=== PATIENT | male | born 1980 | race Caucasian/White ===

== ENCOUNTER → 2018-03-08 08:15 | Day surgery (SDC) | payer OTHER ==
--- NOTE | 2018-02-24 15:13 | HP ---
PREOPERATIVE HISTORY AND PHYSICAL: DATE OF ADMISSION/SURGERY: 03/08/18 DATE OF OFFICE VISIT: 02/24/18 ATTENDING SURGEON: Dr. Pipe Montiel.* (DICTATED BY GIANNI ESTRADA) PROCEDURE: Left shoulder arthroscopic labral repair, subpectoral biceps tenodesis. CHIEF COMPLAINT: Left shoulder pain. HISTORY OF PRESENT ILLNESS: Luis Armando is a 37-year-old male who presents to the clinic for followup of his left shoulder due to instability and biceps tendinitis. He had a previous labral repair in [address] Dunn in [place]. He continued to sublux and failed conservative measures; therefore , he has agreed to undergo left shoulder arthroscopic labral repair and subpectoral biceps tenodesis by Dr. Montiel seen on 03/08/18. PAST MEDICAL HISTORY: Lymphoma and anxiety. PAST SURGICAL HISTORY: Left shoulder surgery in 2015, testicular removal for hernia in 2011 and hydrocele in 1997. The patient denies prior complications with anesthesia. MEDICATIONS: Doxycycline 100 mg 1 by mouth twice a day. ALLERGIES: SULFA ANTIBIOTICS and PENICILLIN. FAMILY HISTORY: Positive for heart disease in his father and cancer on his maternal and paternal sides. SOCIAL HISTORY: He lives alone. 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 He denies tobacco use. He reports occasional alcohol consumption. He denies illegal drug use. He is right-hand dominant. REVIEW OF SYSTEMS: A 14-point review of systems was reviewed with the patient, positive for current complaint, otherwise negative. Denies fevers, chills, chest pain, shortness of breath, history of bleeding disorder, history of DVT or PE, history of MRSA. PHYSICAL EXAMINATION GENERAL: A 37-year-old well-developed, well-nourished male, in no acute distress. Alert and oriented x3. Appropriate mood and affect. Appropriate balance and coordination of the upper extremities. VITAL SIGNS: Height 67, weight 165, blood pressure 103/62, respiratory rate 18 , BMI 25.8. HEENT: Normocephalic, atraumatic. PERRLA. Throat clear. NECK: Supple. PULMONARY: Lungs clear to auscultation bilaterally. No wheezing, rhonchi, or rales. CARDIO: Regular rate and rhythm. S1, S2. No murmurs, gallops, or rubs. No edema. ABDOMEN: Positive bowel sounds, soft, and nontender. NEURO: Alert and oriented x3. Cranial nerves grossly intact. Sensation intact to light touch. MUSCULOSKELETAL: Left upper extremity: Skin is intact. No warmth or erythema. Tenderness over the bicipital groove. Forward flexion and abduction to 175, external rotation to 80, internal rotation to T6. +5/5 strength to rotator cuff testing. Positive apprehension relocation test. 1 to 2+ anterior glide with pain. Positive Speed's and Point Arena's. +2 radial pulses. Sensation intact to light touch distally. DIAGNOSTIC STUDIES: MR arthrogram revealed superior labral degeneration. No full- thickness tears of the rotator cuff, anterior labrum is diminutive, and the glenohumeral ligament looked stretched, large Hill-Sachs lesion. IMPRESSION: Left shoulder instability and biceps tendinitis. PLAN: The patient is scheduled to undergo a left shoulder arthroscopic labral repair and subpectoral biceps tenodesis by Dr. Montiel on 03/08/18. He will follow up 10 to 14 days postop for followup and suture removal. Percocet will be used for postop pain management and Keflex for antibiotic prophylaxis. GIANNI ESTRADA [id number]/[facility] #: [id number] MTDOksana
[~2018-03-08 08:15] MED LIST: Atracurium* 10 MG/ML 10 ML VIAL ONE; Buffered Lidocaine 0.9% SYRIN* 5 ML/SYR SYRINGE INTRADERM ONE; Buffered Lidocaine 0.9% SYRIN* 5 ML/SYR SYRINGE ONE; Bupivacaine 0.5% PF 10 ML VIAL INJ ONE; Clindamycin 900 MG IVPREMIX(* 900 MG/50 ML SDV IV ONE; Dexamethasone IV* 4 MG/ML 1 ML (4 MG) IV SLOW PU ONE; Dexamethasone IV* 4 MG/ML 1 ML (4 MG) ONE; DiMENhydriNATE IV* 50 MG/ML VIAL IV PUSH PRN; Famotidine IV* 10 MG/ML 2 ML (20 mg) IV ONE; Famotidine IV* 10 MG/ML 2 ML (20 mg) ONE; Midazolam* 1 MG/ML 5 ML VIAL (5 MG) ONE; Naloxone* 0.4 MG/ML 1 ML VIAL IV PRN; Ondansetron INJ* 2 MG/ML VIAL IV PRN; Ondansetron INJ* 2 MG/ML VIAL ONE; Propofol* 10 MG/ML 20 ML BTL IV PUSH ONE; ROPIVACAINE 5 MG/ML 30 ML BTL (0.5%) ONE; fentaNYL* 50 MCG/ML 2 ML VIAL (100 MCG VIAL) IV PRN; fentaNYL* 50 MCG/ML 2 ML VIAL (100 MCG VIAL) ONE; oxyCODONE/Acetamin 5/325 MG* TAB PO PRN
[2018-03-08 13:17] VITALS: BP 133/82
--- NOTE | 2018-03-09 11:06 | OP ---
DATE OF OPERATION: 03/08/18 [facility] DATE OF : 80 SURGEON: Pipe Montiel MD WILL CALL CLERK: GIANNI Roman. An costumer assistant was needed for the entirety of the case to help with positioning, retraction, and was utilized throughout all portions of the case. ANESTHESIOLOGIST: Dr. Angelo. ANESTHESIA: General interscalene block. PRE-OP DIAGNOSIS: Left shoulder recurrent dislocation and bicipital tendinitis. POST-OP DIAGNOSIS: Left shoulder recurrent dislocation and bicipital tendinitis. OPERATIVE PROCEDURE: 1. Left shoulder arthroscopy with revision anterior labral repair. 2. Chondroplasty of the glenohumeral joint. 3. Subpectoral biceps tenodesis. COMPLICATIONS: None. ESTIMATED BLOOD LOSS: Minimal. IMPLANTS: Three 2.9 bioraptors and one Q-Fix 2.8 mm. COMPLICATIONS: None. ESTIMATED BLOOD LOSS: Minimal. INDICATIONS: Luis Armando is a 37-year-old male who had a previous labral repair for multiple dislocations in [address] Dunn in [place]. He continued to sublux and he had failed conservative measures and has elected to proceed with revision surgery. Risks and benefits were discussed in length and included but not limited to bleeding; infection; damage to nerves, vessels, surrounding structures; wound nonhealing; persistent pain; need for surgery; scaring; stiffness; incomplete release of symptoms; risk of anesthesia; arthritis; need for further surgery; failure of repair. He has elected to proceed. DESCRIPTION OF PROCEDURE: The patient was greeted in the preoperative area by the attending surgeon. Correct extremity was marked, consent was confirmed. The patient then underwent interscalene nerve block by the anesthesiologist after which he was brought back to the operating suite. He was placed in a supine position on the operating room table. He then underwent general anesthesia with endotracheal intubation after which he was placed in the right lateral decubitus position. All bony prominences were padded. He was secured with a peg board, an axillary roll was placed. Left shoulder was draped unsterile with 10 pounds of traction. There was a 1 to 2+ anterior glide. The left shoulder was then prepped and draped in the usual sterile fashion beginning with chlorhexidine, soap, scrub, and alcohol wipe, and a final prep with ChloraPrep. After appropriate surgical pause indicating site, side, procedure, and administration of antibiotics the posterolateral portal was made sharply with an 11 blade. Scope was introduced into the joint. Joint was examined and there were grade 2 changes in the glenohumeral joint. There was a moderate sized Hill-Sachs lesion that appeared to be engaging the glenoid. The head was subluxed anteriorly. There was evidence of superior labral tearing as well as damage to the jaky and bicipital tendonitis. The undersurface of the supraspinatus was intact. Subscap was intact. There was evidence of absence of the anterior labrum and would stretch neither at the capsule or tearing through the sutures. At this point, the lower anterior portal was made just above the subscap. The 8-mm cannula was then placed. This was the working portal. Shaver was used to debride back the chondral surfaces and to try to help remove the previously placed sutures. The shaver was used to debride back the superior labrum and the biceps was then tenotomized. A second portal was placed in the superior aspect of the interval. A 5mm portal was placed which was the suture passing portal. At this point, the lateral florentino was used to help to distract the shoulder which showed a large drive-through sign. The labrum was repaired in the usual fashion. First the sutures previously placed had to be dug out and then removed. They were removed in their entirety x3. The elevator was then used to try to reapproximate and remove the eschar capsule to the medial aspect of the glenoid. This helped to loosen up the tissues. The capsule was then rasped with a double-ended rasp. The bony edge of the glenoid was then also rasped with a red ball rasp as well as a double- ended rasp. There was a small amount of bleeding that occurred with this which is a good sign. After this was done, the first tourniquet was placed at the 5: 30 position with excellent purchase. Sutures were impacted in a horizontal mattress configuration, but somewhat challenging due to the quality of the capsule, but a horizontal mattress was then placed and tied down using arthroscopic knot tying. This helped to restore the inferior superior shift as well as the labrum anteroinferiorly. The second anchor was placed at the 4:30 position and also passed in a horizontal mattress configuration. This was then tied down using arthroscopic knot tying. This helped to eliminate the drive- through sign. A third anchor was placed at around the 3:30 position and passed in a simple fashion. The lateral florentino was removed. The drive- through sign was limited and the shoulder was sitting more appropriately. There was no evidence of engagement of the Hill-Sachs lesion at this point. Final images were obtained. The wounds were copiously irrigated with sterile saline. Attention was directed to the biceps. The bed was air planed to the right side. The anterior aspect was prepped again using ChloraPrep. A 15-blade was used to make incision along the biceps and the soft tissues were carefully dissected to expose the pec tendon. The remainder of the dissection was done bluntly and the pec was elevated to expose the biceps tendon which was brought through the wound. This had abundant synovitis and erythema. The red ball rasp was then used to prepare the bicipital groove along with electrocautery device as well as the osteotome. At this point, the Q-Fix guide was then used to drill unicortically. The suture anchor was then deployed with excellent purchase. The sutures were then passed through the tendon approximately 1 cm proximal to the musculotendinous junction. The excess stump was excised, the sutures shelved back into the wound and tied down. The wounds were copiously irrigated with sterile saline. The anterior wound was closed in layers of 2-0 Vicryl and 2-0 Monocryl. Portals were closed with 3-0 nylon in uninterrupted fashion. Sterile dressings were applied. The anterior wound was injected with 20 cc of 0.25% Marcaine. Cryo/Cuff and UltraSling were applied. He was awoken from anesthesia and transferred to PACU in stable condition. POSTOPERATIVE PLAN: He will be discharged on pain medications and antibiotics. He will start physical therapy in approximately 10 days. DVT prophylaxis was considered but deferred due to no previous personal or family history. I will see the patient back in 10 to 14 days. [id number]/[facility] #: [id number] [facility]ITAL[facility]ksana
== END | disposition home or self-care (01) ==
LOC: OR 08:15
PROVIDERS: ATTEND Orthopaedic Surgery
DX: M25.312 Other instability, left shoulder (principal); M75.22 Bicipital tendinitis, left shoulder; F41.9 Anxiety disorder, unspecified; Z85.72 Personal history of non-Hodgkin lymphomas; G89.18 Other acute postprocedural pain
CPT/HCPCS: C1776; J1100; J2250; J2405; J2704; J2795; J3010

== ENCOUNTER 2018-03-30 13:51 | Emergency (ER) | payer OTHER ==
--- OUTSIDE RECORDS SUMMARY | 2018-03-30 13:57 | XMS REPORT ---
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., FACP Active large cell (clinical) Note: 2011 Onset: 02/16/2017 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.,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 Onset: 12/15/2017 Injury of shoulder region Pipe Montiel MD Active Onset: 12/15/2017 Recurrent dislocation of shoulder region Pipe Montiel MD Active Family History Date Family Member(s) Problem(s) Comments General Heart Disease General Cancer Father Skin Cancer Father 69 Mother Hypoglycemic, Joint Problems Mother 62 Siblings 1 First Sister No Current Problems Paternal Grandmother Skin Cancer Maternal Grandfather Lung Cancer Maternal Grandmother Alzheimer's Disease Social History Type Date Description Comments Marital Status Single Lives With Alone 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, Researcher ETOH Use 11/29/2017 Current Beer/Liquor Smoking Patient has never smoked Daily Caffeine Consumes on average 1 cup of hot tea per day Exercise Type/Frequency Exercises regularly Currently Active Patient is currently sexually active Allergies, Adverse Reactions, Alerts Date Description Reaction Status Severity Comments 02/16/2017 Sulfa Antibiotics Urticaria active Mild 02/16/2017 Penicillin active Mild to Moderate fever Medications Medication Date Status Form Strength Qnty SIG Indications Ordering Provider Percocet Active Tablets 5-325mg 25tabs 1 tabs by Pipe Cole mouth MD Dinesh every 4-6 hours as needed pain Keflex Active Capsules 500mg 12caps take 1 tab Pipe 018 by mouth MD Dinesh four times a day x 3 days. Do Not take before surgery Doxycycline Active Capsules 100mg 1 by mouth Unknown Monohydrate 000 twice a day No Active Hx Unknown Medications 018 - 018 Glucosamine Hx Capsules 500mg 2 caps by Unknown 000 - mouth three 018 times a day Multi Complete Hx Capsules daily Unknown 000 - 018 Vital Signs Date Vital Result Comment 03/30/2018 Height 67 inches 5'7" Weight 165.00 lb BP Systolic 122 mmHg BP Diastolic 72 mmHg Respiratory Rate 16 /min Body Temperature 96.9 F Pain Level 0 BMI (Body Mass Index) 25.8 kg/m2 03/17/2018 Height 67 inches 5'7" Weight 165.00 lb BP Systolic 130 mmHg BP Diastolic 78 mmHg Respiratory Rate 18 /min Body Temperature 97.0 F Pain Level 2 BMI (Body Mass Index) 25.8 kg/m2 02/24/2018 Height 67 inches 5'7" Weight 165.00 lb BP Systolic 103 mmHg BP Diastolic 62 mmHg Respiratory Rate 18 /min Pain Level 1 BMI (Body Mass Index) 25.8 kg/m2 01/10/2018 Height 67 inches 5'7" Weight 173.00 lb Heart Rate 68 /min BP Systolic 122 mmHg BP Diastolic 75 mmHg Body Temperature 97.9 F Pain Level 1 BMI (Body Mass Index) 27.1 kg/m2 12/15/2017 Height 67 inches 5'7" Weight 173.00 lb BP Systolic 124 mmHg BP Diastolic 70 mmHg Respiratory Rate 18 /min Body Temperature 97.9 F Pain Level 2 BMI (Body Mass Index) 27.1 kg/m2 11/29/2017 Weight 173.00 lb Heart Rate 72 /min BP Systolic 122 mmHg BP Diastolic 68 mmHg Body Temperature 97.2 F O2 % BldC Oximetry 97 % 02/16/2017 Height 67 inches 5'7" Weight 164.25 lb Heart Rate 66 /min BP Systolic Sitting 126 mmHg BP Diastolic Sitting 64 mmHg Body Temperature 97.7 F O2 % BldC Oximetry 98 % BMI (Body Mass Index) 25.7 kg/m2 Results Test Date Test Result H/L Range Note CBC Auto Diff 03/02/2017 White Blood Count 6.4 10^3/uL 3.5-10.8 Red Blood Count 5.03 10^6/uL 4.0-5.4 Hemoglobin 15.3 g/dL 14.0-18.0 Hematocrit 46 % 42-52 Mean Corpuscular Volume 92 fL 80-94 Mean Corpuscular Hemoglobin 30 pg 27-31 Mean Corpuscular HGB Conc 33 g/dL 31-36 Red Cell Distribution Width 13 % 10.5-15 Platelet Count 195 10^3/uL 150-450 Mean Platelet Volume 8 um3 7.4-10.4 Abs Neutrophils 4.0 10^3/uL 1.5-7.7 Abs Lymphocytes 1.8 10^3/uL 1.0-4.8 Abs Monocytes 0.6 10^3/uL 0-0.8 Abs Eosinophils 0 10^3/uL 0-0.6 Abs Basophils 0 10^3/uL 0-0.2 Abs Nucleated RBC 0.01 10^3/uL Granulocyte % 62.9 % 38-83 Lymphocyte % 27.7 % 25-47 Monocyte % 8.7 % 1-9 Eosinophil % 0.3 % 0-6 Basophil % 0.4 % 0-2 Nucleated Red Blood Cells % 0.2 Lipid Profile (Trig/Chol/HDL) 03/02/2017 Triglycerides 97 mg/dL 1 Cholesterol 219 mg/dL 2 HDL Cholesterol 47.2 mg/dL 3 LDL Cholesterol 152 mg/dL 4 Comp Metabolic Panel 03/02/2017 Sodium 136 mmol/L 133-145 Potassium 4.0 mmol/L 3.5-5.0 Chloride 103 mmol/L 101-111 Co2 Carbon Dioxide 27 mmol/L 22-32 Anion Gap 6 mmol/L 2-11 Glucose 90 mg/dL 70-100 Blood Urea Nitrogen 15 mg/dL 6-24 Creatinine 0.95 mg/dL 0.67-1.17 BUN/Creatinine Ratio 15.8 8-20 Calcium 9.3 mg/dL 8.6-10.3 Total Protein 7.2 g/dL 6.4-8.9 Albumin 4.3 g/dL 3.2-5.2 Globulin 2.9 g/dL 2-4 Albumin/Globulin Ratio 1.5 1-3 Total Bilirubin 0.90 mg/dL 0.2-1.0 Alkaline Phosphatase 43 U/L 34-104 Alt 27 U/L 7-52 Ast 21 U/L 13-39 Egfr Non- 89.7 >60 Egfr 115.4 >60 5 HIV 1/2 AB Evaluation 03/02/2017 HIV 1 2 Antibody Nonreactive Nonreactive 6 Laboratory test 03/02/2017 Hepatitis C Antibody Nonreactive Nonreactive 7 finding GC/Chlamydia Amplified 03/02/2017 Chlamydia trachomatis Negative Negative Rna Rna Neisseria gonorrhoeae (GC) Rna Negative Negative 1 Desirable <150 Borderline high 150-199 High 200-499 Very High >500 2 Desirable <200 Borderline high 200-239 High >239 3 Low <40 Desirable: 40-60 High: >60 4 Desirable: <100 mg/dL Near Optimal: 100-129 mg/dL Borderline High: 130-159 mg/dL High: 160-189 mg/dL Very High: >189 mg/dL 5 Because ethnic data is not always readily available, this report includes an eGFR for both -Americans and non- Americans. The National Kidney Disease Education Program (NKDEP) does not endorse the use of the MDRD equation for patients that are not between the ages of 18 and 70, are , have extremes of body size, muscle mass, or nutritional status, or are non- or non-. According to the National Kidney Foundation, irrespective of diagnosis, the stage of the disease is based on the level of kidney function: Stage Description GFR(mL/min/1.73 m(2)) 1 Kidney damage with normal or decreased GFR 90 2 Kidney damage with mild decrease in GFR 60-89 3 Moderate decrease in GFR 30-59 4 Severe decrease in GFR 15-29 5 Kidney failure <15 (or dialysis) 6 It is recognized that currently available assays for the detection of antibodies to HIV-1 and/or HIV-2 may not detect all infected individuals. HIV antibodies may be undetectable in some stages of the infection and in some clinical conditions. The performance of this assay has not been established for populations of infants or children. Assayed by Chemiluminescence Microparticle Immunoassay on the [employer] Advia Centaur CP. Values obtained with different methods or kits cannot be used interchangeably.The diagnostic specificity of the ADVIA Centaur 1/O/2 Enhanced assay in the low risk population was 99.90% (6052/6058) with a 95% confidence interval of 99.78 to 99.96%. 7 FASTING 10 HOUR Procedures Date CPT Code Description Status 03/08/2018 53273 Arthroscopy Shoulder Debridement Extensive Completed 03/08/2018 11270 Arthroscopy Shoulder Debridement Extensive Completed 03/08/2018 90737 Arthroscopy Shoulder Debridement Extensive Completed 03/08/2018 87152 Arthroscopy,Shoulder,Surg,Capsulorrhaphy Completed 03/08/2018 73208 Arthroscopy,Shoulder,Surg,Capsulorrhaphy Completed 03/08/2018 12023 Tenodesis Biceps Long Tendon Completed 03/08/2018 98055 Tenodesis Biceps Long Tendon Completed 12/05/2017 33341 Biopsy Skin Lesion Single Completed Encounters Type Date Location Provider CPT E/M Dx Office Visit 01/10/2018 1:45p [facility] [place] [address] M24.412 C.[facility]A. S46.102A Office Visit 12/15/2017 1:30p [facility] [place] [address] M24.412 C.M.A. S46.102A Office Visit 12/05/2017 3:20p [facility] [place] [address] H00.019 D22.9 L98.9 Office Visit 11/29/2017 4:00p [facility] [place], [address] M24.412 Kevyn Aquino M.D.,FACP D48.5 H00.015 Office Visit 02/16/2017 1:00p [facility] [place] [place], [address] Z00.01 Medicine - Tbyumiko Noel M.D.,FACP C83.35 S86.102D Plan of Care Future Appointment(s):04/18/2018 1:15 pm - Pipe Montiel MD at [facility]03/30/2018 - Pipe Montiel, MDM24.412 Recurrent dislocation, left shoulderFollow up:Follow up: 3 nychgT33.102D Unsp injury of musc/fasc/ tend long hd bicep, left arm, subs
--- OUTSIDE RECORDS SUMMARY | 2018-03-30 13:57 | XMS REPORT ---
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 Values obtained with different methods or kits cannot be used interchangeably.The diagnostic specificity of the ADVIA Centaur 1/O/2 Enhanced assay in the low risk population was 99.90% (6052/6058) with a 95% confidence interval of 99.78 to 99.96%. 7 FASTING 10 HOUR Procedures Date CPT Code Description Status 03/08/2018 04172 Arthroscopy Shoulder Debridement Extensive Completed 03/08/2018 44668 Arthroscopy Shoulder Debridement Extensive Completed 03/08/2018 20102 Arthroscopy,Shoulder,Surg,Capsulorrhaphy Completed 03/08/2018 19501 Arthroscopy,Shoulder,Surg,Capsulorrhaphy Completed 03/08/2018 60034 Tenodesis Biceps Long Tendon Completed 12/05/2017 98670 Biopsy Skin Lesion Single Completed Encounters Type Date Location Provider CPT E/M Dx Office Visit 01/10/2018 1:45p [facility] [place] [address] M24.412 C.M.A. S46.102A Office Visit 12/15/2017 1:30p [facility] [place] [address] M24.412 C.M.A. S46.102A Office Visit 12/05/2017 3:20p [facility] [place] [address] H00.019 D22.9 L98.9 Office Visit 11/29/2017 4:00p [facility] [place], [address] M24.412 Medicine - Kenia Yanez,FACP D48.5 H00.015 Office Visit 02/16/2017 1:00p [facility] [place], [address] Z00.01 Medicine - Jaydon Noel M.D.,FACP C83.35 S86.102D Plan of Care Future Appointment(s):04/18/2018 1:15 pm - Pipe Montiel MD at [facility]03/17/2018 - GIANNI Roman-CM24.412 Recurrent dislocation, left shoulderFollow up:Follow up: 4 geitiI50.102D Unsp injury of musc/fasc/tend long hd bicep, left arm, subs
[2018-03-30 14:29] VITALS: BP 124/82
--- NOTE | 2018-03-30 14:49 | UC ---
Eye Complaint HPI - HPI Summary HPI Summary: This is [facility] documenting for presenting MD Amy. Pt is a 37 y/o M p/w possible L eye infection onset this AM. Assoc. Sx: itchy eye, red eye, drainage, crust. Denies: Change in vision, use of glasses. Patient notes that he woke this AM with Sx. Allergies: Penicillin. FHx: CAD. He denies use of contact lenses. He states his right eye is starting to get irritated as well now. - History of Current Complaint Chief Complaint: UCEye Stated Complaint: EYE ISSUE Time Seen by Provider: 03/30/18 14:42 Hx Obtained From: Patient Onset/Duration: Sudden Onset Timing: Constant Severity Currently: Mild Pain Intensity: 1 Pain Scale Used: 0-10 Numeric Location of Injury: Other - Diffuse eye Aggravating Factor(s): Nothing Alleviating Factor(s): Nothing Associated Signs And Symptoms: Positive: Drainage (Clear). Negative: Vision Impairment Bilateral, Vision Impairment Right, Vision Impairment Left - Allergies/Home Medications Allergies/Adverse Reactions: Allergies Allergy/AdvReac Type Severity Reaction Status Date / Time Penicillins Allergy Fever Verified 03/30/18 14:21 Sulfa (Sulfonamide Allergy Hives Verified 03/30/18 14:21 Antibiotics) BEE STINGS Allergy SWELLING, Uncoded 03/30/18 14:21 HIVES Home Medications: Home Medications Ibuprofen TAB* [Motrin TAB* 600 MG] 600 mg PO ONCE 03/30/18 [History Confirmed 03/30/18] PMH/Surg Hx/FS Hx/Imm Hx - Surgical History Surgical History: Yes Surgery Procedure, Year, and Place: 2014 LT SHOULDER - REPAIR - SUPRASPANATUS REPAIR, [place]. 2011 REMOVAL RIGHT TESTICLE, [place]. 1996 HYDROCELE - REMOVED, [place]. 2017 L shoulder repair - Family History Known Family History: Positive: Cardiac Disease Negative: Hypertension, Diabetes - Social History Alcohol Use: Occasionally Substance Use Type: None Smoking Status (MU): Never Smoked Tobacco Review of Systems Eyes: Drainage - clear, Eye Redness, Other - NEG: change in vision POS: watering, crust. All Other Systems Reviewed And Are Negative: Yes Physical Exam Triage Information Reviewed: Yes Appearance: Well-Appearing, No Pain Distress Vital Signs: Initial Vital Signs Temp 98.5 F 08/02/18 14:22 Pulse 59 03/30/18 14:22 Resp 16 03/30/18 14:22 BP 124/82 03/30/18 14:22 Pulse Ox 99 03/30/18 14:22 Eyes: Positive: Conjunctiva Inflamed - bilateral left greater than right ENT: Positive: Normal ENT inspection Neck: Positive: Supple Respiratory: Positive: Chest non-tender Cardiovascular: Positive: RRR, No Murmur Abdomen Description: Negative: Distended Musculoskeletal: Positive: ROM Intact Neurological: Positive: Muscle Tone Normal Psychological: Positive: Normal Response To Family Skin Exam: Normal Eye Complaint Course/Dx - Course Course Of Treatment: Provider met with patient and decided a Dx of bilateral conjunctivitis. He is going to prescribe drops for pt. He will be discharged. - Differential Dx/Diagnosis Provider Diagnoses: Conjunctivitis bilateral Discharge - Sign-Out/Discharge Documenting (check all that apply): Patient Departure - Discharge Plan Condition: Good Disposition: HOME Prescriptions: Ofloxacin 0.3%(Ophth)(Nf) [Ocuflox OPTH 0.3%(NF)] 1 drop BOTH EYES QID #1 btl Patient Education Materials: Conjunctivitis (ED) Referrals: You La MD [Primary Care Provider] - - Billing Disposition and Condition Condition: GOOD Disposition: Home
== END 2018-03-30 14:55 | disposition home or self-care (01) ==
LOC: UCEAST 13:51
DX: H10.33 Unspecified acute conjunctivitis, bilateral (principal); Z88.0 Allergy status to penicillin; Z88.2 Allergy status to sulfonamides; Z91.030 Bee allergy status
CPT/HCPCS: 99212; G0463

== ENCOUNTER 2019-09-29 12:44 | Emergency (ER) | payer OTHER ==
[2019-09-29 13:08] VITALS: BP 125/74
--- NOTE | 2019-09-29 13:46 | UC ---
Throat Pain/Nasal Thomas HPI - HPI Summary HPI Summary: 38yo male presenting with nasal congestion and sinus tenderness x3 weeks that has worsened over the past 3 days. Patient states he had a cold or the flu 3 weeks ago and all symptoms resolved except congestion and persistent productive cough. Denies shortness breath and wheezing. Does note it is more difficult to sleep at night due to cough. Notes postnasal drip. Denies sore throat. Denies ear pain. Denies fever or chills. Taking [id number] cough and cold medication without relief. - History of Current Complaint Chief Complaint: UCGeneralIllness Stated Complaint: SINUS ISSUE Hx Obtained From: Patient Pain Intensity: 2 Pain Scale Used: 0-10 Numeric - Allergies/Home Medications Allergies/Adverse Reactions: Allergies Allergy/AdvReac Type Severity Reaction Status Date / Time Penicillins Allergy Fever Verified 09/29/19 13:09 Sulfa (Sulfonamide Allergy Hives Verified 09/29/19 13:09 Antibiotics) BEE STINGS Allergy SWELLING, Uncoded 09/29/19 13:09 HIVES Home Medications: Home Medications Dm/PE/Acetaminophen/Doxylamine [Vicks Nyquil Severe Cold-Flu] 1 each PO Q4H 09/17 [History Confirmed 09/29/19] PMH/Surg Hx/FS Hx/Imm Hx - Surgical History Surgical History: Yes Surgery Procedure, Year, and Place: 2014 LT SHOULDER - REPAIR - SUPRASPANATUS REPAIR, [place]. 2011 REMOVAL RIGHT TESTICLE, [place]. 1996 HYDROCELE - REMOVED, [place]. 2017 L shoulder repair - Family History Known Family History: Positive: Cardiac Disease Negative: Hypertension, Diabetes - Social History Alcohol Use: Weekly Substance Use Type: None Smoking Status (MU): Never Smoked Tobacco Review of Systems All Other Systems Reviewed And Are Negative: Yes Constitutional: Positive: Negative ENT: Positive: Nasal Discharge - PND, Sinus Congestion, Sinus Pain/Tenderness Respiratory: Positive: Cough - productive. Negative: Shortness Of Breath Cardiovascular: Positive: Negative Gastrointestinal: Positive: Negative Musculoskeletal: Negative: Myalgia Neurological: Positive: Negative Physical Exam - Summary Physical Exam Summary: Vital Signs Reviewed: Yes A+Ox3, no distress Eyes: Conjunctiva Clear ENT: Hearing grossly normal, TM x 2 clear, +nasal congestion, +PND, +maxillary sinus tenderness, moist, uvula midline, no exudate, no erythema Neck: Positive: Supple Respiratory: Positive: No respiratory distress, No accessory muscle use + CTA throughout no w/r Cardiovascular: RRR nl s1, s2 no m/r Musculoskeletal Exam: MUNOZ x 4 without difficulty Neurological: Positive: Alert Psychological: Positive: age appropriate behavior Skin: Positive: no rash, no ecchymosis Vital Signs: Initial Vital Signs Temp 98.9 F 09/29/19 13:04 Pulse 72 09/29/19 13:04 Resp 16 09/29/19 13:04 BP 125/74 09/29/19 13:04 Pulse Ox 100 09/29/19 13:04 Throat Pain/Nasal Course/Dx - Course Course Of Treatment: I treated patient with doxycycline for sinusitis. Instructed to add flonase or saline spray for symptom relief. Educated on viral bronchitis and symptomatic treatment. Also provided patient with prescription for tesslon perles for cough relief. Instructed to follow up with pcp if symptoms do not resolve within 7 days. Patient voiced understanding and agreed with treatment plan. - Differential Dx/Diagnosis Provider Diagnosis: Sinusitis, Acute bronchitis with bronchospasm Discharge ED - Sign-Out/Discharge Documenting (check all that apply): Patient Departure All imaging exams completed and their final reports reviewed: No Studies - Discharge Plan Condition: Stable Disposition: HOME Prescriptions: Benzonatate CAP* [Tessalon 100 MG CAP*] 100 mg PO TID PRN #15 cap PRN Reason: Cough DOXYcycline CAP(*) [DOXYcycline 100MG CAP(*)] 100 mg PO BID #14 cap Patient Education Materials: Sinusitis (ED), Acute Bronchitis (ED) Referrals: You La MD [Primary Care Provider] - If Needed Additional Instructions: As discussed, take doxycycline for treatment of your sinus infection. You may also use Flonase for symptomatic relief. You may also take tessalon perles as directed for cough relief. Increase fluids. Follow up with your primary care provider if symptoms do not resolve within 7 days. - Billing Disposition and Condition Condition: STABLE Disposition: Home - Attestation Statements Provider Attestation: This patient was not seen by me. I was available for consult. Chart reviewed. [id number]
== END 2019-09-29 14:00 | disposition home or self-care (01) ==
LOC: UCEAST 12:44
DX: J32.9 Chronic sinusitis, unspecified (principal); J20.9 Acute bronchitis, unspecified; Z88.0 Allergy status to penicillin; Z88.2 Allergy status to sulfonamides; Z91.030 Bee allergy status
CPT/HCPCS: 99212; G0463